=== PATIENT | male | born 1970 | race Caucasian/White ===

== ENCOUNTER 2021-06-22 06:59 | Day surgery (SDC) | payer OTHER ==
[2021-06-21 08:55] VITALS: BMI 32.1
[2021-06-22 07:37] VITALS: TEMP 97.8
[2021-06-22] MEDS ORDERED: MIDAZOLAM HCL 2 MG/2 ML SINGLE DOSE VIAL ONE (08:19)
[2021-06-22] MEDS ORDERED: PROPOFOL 20 ML ONE (08:19)
[2021-06-22] MEDS ORDERED: GLYCOPYRROLATE 0.2 MG/1 ML VIAL ONE (08:19)
[2021-06-22] MEDS ORDERED: ceFAZolin SODIUM 1 GM VIAL ONE (08:19)
[2021-06-22] MEDS ORDERED: SODIUM CHLORIDE 0.9% P/F 10 ML VIAL IJ ONE (08:19)
[2021-06-22] MEDS ORDERED: LIDOCAINE HCL/PF 2% SDV 5ML VIAL ONE (08:40)
[2021-06-22] MEDS ORDERED: KETOROLAC TROMETHAMINE 30 MG/1 ML VIAL ONE (08:42)
[2021-06-22 09:46] VITALS: BP 122/80; PULSE 81
== END 2021-06-22 10:00 | disposition home or self-care (01) ==
LOC: FASU 06:59
PROVIDERS: ATTEND Orthopaedic Surgery Hand Surgery
PROC: 0JBJ0ZZ Excision of Right Hand Subcutaneous Tissue and Fascia, Open Approach (ICD-10-PCS; principal; 2021-06-22 08:56)
DX: D21.11 Benign neoplasm of connective and other soft tissue of right upper limb, including shoulder (principal)